=== PATIENT | female | born 2000 | race Caucasian/White ===

== ENCOUNTER → 2018-04-30 | Outpatient (CLI) | payer BC ==
--- NOTE | 2018-04-30 11:45 | Diagnostic Imaging Report ---
PROCEDURE: CT abdomen and pelvis without contrast. TECHNIQUE: Multiple contiguous axial images were obtained through the abdomen and pelvis without the use of intravenous contrast. INDICATION: Hematuria, recurrent UTIs. COMPARISON: There are no prior studies available for comparison. FINDINGS: There is no evidence for nephrolithiasis or urolithiasis, and the kidneys do not appear to be obstructed. The urinary bladder is only partially distended and consequently difficult to assess. There is no obvious bladder abnormality evident. The uterus is not enlarged. There is no pelvic mass or free fluid collection evident. The appendix is not abnormally thickened, and there is no distortion of the periappendiceal fat to suggest acute appendicitis. The liver, spleen, pancreas, adrenals, gallbladder, aorta, and inferior vena cava show no sign of an acute abnormality. The stomach is filled with particulate matter and consequently difficult to assess. The lung bases are clear. The bone windows show no evidence for a fracture or for a destructive lesion. IMPRESSION: 1. There is no evidence for nephrolithiasis or urolithiasis, and the kidneys do not appear to be obstructed. The bladder is grossly unremarkable. 2. There is no acute abnormality of the abdomen or pelvis. Dictated by: Dictated on workstation # [id number]
== END ==
LOC: RAD 10:30
PROVIDERS: ATTEND Urology
DX: N39.0 Urinary tract infection, site not specified (principal)
CPT/HCPCS: 74176